=== PATIENT | female | born 1975 | race Caucasian/White ===

== ENCOUNTER 2020-02-21 03:43 | Emergency (ER) | payer SELFPAY ==
[2020-02-21] MEDS ORDERED: Morphine 4 MG/ML VIAL ONE (03:56)
[2020-02-21] MEDS ORDERED: Ondansetron PF 4 MG/2 ML Vial ONE (03:56)
[2020-02-21] MEDS ORDERED: HYDROcodone/Acetaminophen 5/325 mg Tablet ONE (04:21)
--- NOTE | 2020-02-21 07:45 | RAD ---
Exam:Left shoulder 3 views HISTORY: Seizure. COMPARISON: None FINDINGS: There appears to be posterior dislocation of the humeral head with respect to glenoid. Ther e appears to be proximal humeral fracture. IMPRESSION: Fracture and posterior dislocation Results of study discussed with Dr. Medina 02/21/2020 at 7:42 AM Code CR
--- NOTE | 2020-02-21 07:46 | RAD ---
Exam:Left humerus 2 views HISTORY: Pain. Seizure. COMPARISON: None FINDINGS: There appears to be cortical irregularity involving the proximal humerus. Presumed fracture . Posterior dislocation cannot be excluded. IMPRESSION: Posterior dislocation. Proximal humerus fracture..
== END 2020-02-21 05:35 | disposition home or self-care (01) ==
LOC: ERS 03:43
DX: R56.9 Unspecified convulsions (principal); S42.202A Unspecified fracture of upper end of left humerus, initial encounter for closed fracture; R89.2 Abnormal level of other drugs, medicaments and biological substances in specimens from other organs, systems and tissues; I10 Essential (primary) hypertension; F32.9 Major depressive disorder, single episode, unspecified; Z79.899 Other long term (current) drug therapy; X58.XXXA Exposure to other specified factors, initial encounter
CPT/HCPCS: 36415; 80177; 80185; 96365; 96375; J2270; J2405; Q2009

== ENCOUNTER 2020-02-21 09:17 | Emergency (ER) | payer SELFPAY ==
[2020-02-21] MEDS ORDERED: Fentanyl 100 MCG/2 ML VIAL ONE ×2 (09:28→11:35)
[2020-02-21] MEDS ORDERED: Ketamine 50 MG/ML (10ML VIAL) ONE (09:29)
[2020-02-21] MEDS ORDERED: Ondansetron PF 4 MG/2 ML Vial ONE ×2 (10:23→11:24)
--- NOTE | 2020-02-21 11:24 | RAD ---
LEFT SHOULDER 3 VIEWS: Date: 02/21/2020 INDICATION: Trauma. COMPARISON: Films from earlier this morning. FINDINGS/IMPRESSION: There continues to be evidence of a posterior shoulder dislocation with associated fracture of the hu meral head and neck with displaced fragments. No significant change. POS: [facility]
--- NOTE | 2020-02-21 11:25 | RAD ---
PORTABLE LEFT SHOULDER POST REDUCTION 2 VIEWS: Date: 02/21/2020 Comparison made to earlier films. INDICATION: Post reduction. FINDINGS: The scapular Y view continues to show posterior dislocation of the humeral head. Comminuted displaced fractures of humeral head and neck noted. POS: [facility]
--- NOTE | 2020-02-21 12:08 | RAD ---
2 VIEWS LEFT SHOULDER: Date: 02/21/2020 PROVIDED CLINICAL HISTORY: Post reduction. FINDINGS: Evaluation is limited by patient body habitus. The glenohumeral relationship demonstrates a normal ap pearance on the scapular Y view. Known fractures are less well seen on this examination. IMPRESSION: As above. POS: [facility]
[2020-02-21] MEDS ORDERED: Ketorolac Tromethamine 30 MG/ML VIAL ONE (13:36)
--- NOTE | 2020-02-21 16:35 | CON ---
DATE OF CONSULTATION: CHIEF COMPLAINT: Left shoulder pain. HISTORY OF PRESENT ILLNESS: Ms. Simmons is a 44-year-old female, who has had a seizure last night. She came in last night and was found to have a posterior shoulder dislocation with proximal humerus fracture. She had an attempted reduction in the emergency department, however, this was unsuccessful. I was consulted to reduce the patient's shoulder. She has received ketamine but is waking up at this point. She reports shoulder pain. She has had a history of seizure disorder. This is not her first seizure, but it is her first shoulder dislocation. PAST MEDICAL HISTORY: Hypertension, seizure disorder, and obesity. PAST SURGICAL HISTORY: Distal radial fracture surgery. PSYCHIATRIC HISTORY: Depression. ALLERGIES: NO KNOWN DRUG ALLERGIES. MEDICATIONS: The patient is on; 1. Dilantin. 2. Losartan. 3. Trintellix. PHYSICAL EXAMINATION: VITAL SIGNS: Temperature is 97 on room air, blood pressure is 138/110, and pulse is 116. GENERAL: She is alert, lying supine, in no apparent distress. RESPIRATORY: Breathing comfortably. ABDOMEN: Soft, nontender, and nondistended. HEENT: Normocephalic and atraumatic. MUSCULOSKELETAL: The patient's left shoulder has limited motion. She has pain with motion. She is neurovascularly intact in the fingers. She has palpable pulses. She has very limited external rotation of the shoulder and cannot elevate the arm. IMAGING DATA: X-rays of the left shoulder show a posteriorly dislocated proximal humerus with possible small proximal humeral fracture fragments. IMPRESSION: Left posterior shoulder dislocation in a 44-year-old female with seizure disorder. PLAN: At this point, we will perform a closed reduction maneuver in the emergency department. She will be given ketamine sedation. She will go into a sling after this. I would like to see her back in the clinic in 2 weeks for followup evaluation with x-rays to ensure that she has appropriate alignment. She can come out of the sling for gentle elbow motion. The patient was given ketamine sedation guided by the emergency room. She then underwent a traction, countertraction, shoulder reduction maneuver performed by myself and Dr. Medina. She did well with this. We felt a palpable clunk. X-rays confirmed reduction of the shoulder dislocation. She was awaken and did fine after the procedure. Job ID: [id number]
== END 2020-02-21 14:00 | disposition short-term general hospital (02) ==
LOC: ERS 09:17
DX: S42.212A Unspecified displaced fracture of surgical neck of left humerus, initial encounter for closed fracture (principal); S42.202A Unspecified fracture of upper end of left humerus, initial encounter for closed fracture; S43.025A Posterior dislocation of left humerus, initial encounter; I10 Essential (primary) hypertension; F32.9 Major depressive disorder, single episode, unspecified; Z79.899 Other long term (current) drug therapy; X58.XXXA Exposure to other specified factors, initial encounter
CPT/HCPCS: 23650; 96365; 96375; 96376; 99152; 99153; J1885; J2405; J3010

== ENCOUNTER 2020-06-12 12:50 | Outpatient (CLI) | payer OTHER ==
--- NOTE | 2020-06-13 06:18 | EEG ---
DATE OF SERVICE: 06/12/2020 DESCRIPTION OF THE RECORD: Background activity is a medium amplitude 9 hertz alpha frequency. The patient remained awake throughout the study. Hyperventilation and photic stimulation were unremarkable. No epileptiform features were present. IMPRESSION: This is a normal awake EEG. Job ID: [id number]
== END 2020-06-12 12:51 | disposition home or self-care (01) ==
LOC: EEG 12:50
PROVIDERS: ATTEND Nurse Practitioner Acute Care
DX: R56.9 Unspecified convulsions (principal)
CPT/HCPCS: 95816

== ENCOUNTER 2022-09-11 19:26 | Emergency (ER) | payer BC ==
[2022-09-11] MEDS ORDERED: FENTANYL 50 MCG/ML 1 ML VIAL ONE (21:45)
== END 2022-09-11 23:20 | disposition home or self-care (01) ==
LOC: ERS 19:26
DX: S82.001A Unspecified fracture of right patella, initial encounter for closed fracture (principal); W18.41XA Slipping, tripping and stumbling without falling due to stepping on object, initial encounter
CPT/HCPCS: 71045; 96372; J3010